=== PATIENT | female | born 1975 | race African-American/Black ===

== ENCOUNTER 2019-10-07 14:43 | Emergency (ER) | payer SELFPAY ==
--- NOTE | 2019-10-07 15:44 | CT ---
CT BRAIN WITHOUT CONTRAST: HISTORY: Syncope, collapse, trauma to the head, headache, neck pain COMPARISON: 05/18/2009 FINDINGS: No evidence of acute infarct, hemorrhage, midline shift or abnormal extra-axial fluid collections is seen. The ventricular size is appropriate and the basilar cisterns are patent. The bony calvarium is intact. The visualized paranasal sinuses and mastoid air cells are well aerated. IMPRESSION: No CT evidence of acute intracranial process.
--- NOTE | 2019-10-07 15:48 | CT ---
CT cervical spine noncontrast HISTORY: Neck injury. FINDINGS: Straightening of the normal lordotic curvature. Vertebral body heights are maintained. Cerv icothoracic junction is intact. No acute fracture or dislocation evident. Tiny pockets of gas just lateral to the C1 lateral mass and at the left C2 neural foramen are likely venous related to recent IV start. IMPRESSION: No acute osseous abnormalities are demonstrated.
[2019-10-07 16:16] LABS: #Lymphocytes 1.1 thou/uL (1.20-3.40); #Monocytes 0.7 thou/uL (0.11-0.59); #Neutrophils 5.3 thou/uL (1.40-6.50); %Basophils 0.4 % (0.0-1.0); %Eosinophils 0.1 % (0.0-10.0); %Lymphocytes 15.6 % (21.0-51.0); %Monocytes 10.1 % (0.0-10.0); %Neutrophils 73.9 % (42.0-75.0); Hemoglobin 14.7 g/dL (12.0-16.0); Mean Corpuscular Hemoglobin 30.2 pg (27.0-31.0); Mean Corpuscular Volume 91.6 fL (78.0-98.0); Mean Platelet Volume 6.5 fL (7.4-10.4); Platelet Count 310 thou/uL (130-400); Red Blood Cell (RBC) Count 4.85 mill/uL (4.20-5.40); White Blood Cell (WBC) Count 7.2 thou/uL (4.8-10.8)
[2019-10-07 16:38] LABS: ALT (SGPT) 12 U/L (8-55); AST (SGOT) 15 U/L (5-34); Albumin 3.9 g/dL (3.5-5.0); Alkaline Phosphatase 58 U/L (40-110); Anion Gap 12 mmol/L (10-20); BUN (Urea Nitrogen) 14 mg/dL (7.0-18.7); Bilirubin, Total 0.3 mg/dL (0.2-1.2); Calc. Creatinine Clearance 0 mL/min (70-130); Calcium 8.9 mg/dL (7.8-10.44); Carbon Dioxide 26 mmol/L (22-29); Chloride 103 mmol/L (98-107); Estimated GFR-MDRD 58; Globulin 3.7 g/dL (2.4-3.5); Glucose 85 mg/dL (70-105); Potassium 4.1 mmol/L (3.5-5.1); Protein, Total 7.6 g/dL (6.0-8.3); Sodium 137 mmol/L (136-145)
[2019-10-07 17:17] LABS: BHCG - Serum Negative (NEGATIVE); Pregs Control Background? CLEAR/WHITE (CLR/WHITE); Pregs Control Bar Appear? YES (CONTROL BAR)
== END 2019-10-07 17:10 | disposition home or self-care (01) ==
LOC: ERS 14:43
DX: R55 Syncope and collapse (principal); S09.90XA Unspecified injury of head, initial encounter; F17.210 Nicotine dependence, cigarettes, uncomplicated; W01.198A Fall on same level from slipping, tripping and stumbling with subsequent striking against other object, initial encounter
CPT/HCPCS: 36415; 70450; 72125; 80053; 84484; 84703; 85025; 93005; 96360

== ENCOUNTER 2020-12-27 10:30 | Emergency (ER) | payer SELFPAY ==
[2020-12-27 11:41] LABS: #Basophils 0.1 thou/uL (0.0-0.2); #Eosinphils 0.2 thou/uL (0.0-0.7); #Lymphocytes 1.3 thou/uL (1.20-3.40); %Basophils 1.2 % (0.0-1.0); %Eosinophils 1.9 % (0.0-10.0); %Lymphocytes 15.1 % (21.0-51.0); %Monocytes 11.6 % (0.0-10.0); %Neutrophils 70.2 % (42.0-75.0); Hemoglobin 12.8 g/dL (12.0-16.0); Mean Corpuscular HGB CONC 32.7 g/dL (32.0-36.0); Mean Corpuscular Hemoglobin 29.8 pg (27.0-31.0); Mean Platelet Volume 7.3 fL (7.4-10.4); Platelet Count 224 thou/uL (130-400); RBC Distribution Width 13.1 % (11.5-14.5); Red Blood Cell (RBC) Count 4.28 mill/uL (4.20-5.40); White Blood Cell (WBC) Count 8.5 thou/uL (4.8-10.8)
[2020-12-27] MEDS ORDERED: Iopamidol-370 76% 500 ML 1 ML ONE (11:44)
[2020-12-27 12:09] LABS: ALT (SGPT) 315 U/L (8-55); AST (SGOT) 296 U/L (5-34); Albumin 3.5 g/dL (3.5-5.0); Alkaline Phosphatase 51 U/L (40-110); Anion Gap 14 mmol/L (10-20); BUN (Urea Nitrogen) 12 mg/dL (7.0-18.7); Bilirubin, Total 2.1 mg/dL (0.2-1.2); Calc. Creatinine Clearance 0 mL/min (70-130); Calcium 8.5 mg/dL (7.8-10.44); Carbon Dioxide 18 mmol/L (22-29); Chloride 109 mmol/L (98-107); Globulin 3.1 g/dL (2.4-3.5); Glucose 120 mg/dL (70-105); Protein, Total 6.6 g/dL (6.0-8.3); Sodium 137 mmol/L (136-145)
[2020-12-27] MEDS ORDERED: Ondansetron PF 4 MG/2 ML Vial ONE (13:12)
[2020-12-27] MEDS ORDERED: Ketorolac Tromethamine 30 MG/ML VIAL ONE (13:12)
[2020-12-27] MEDS ORDERED: Albuterol Sulfate 1.25 MG/3 ML NEB ONE (13:12)
[2020-12-27] MEDS ORDERED: Albuterol Sulfate 2.5 mg/0.5 ml Neb ONE (13:13)
[2020-12-27] MEDS ORDERED: Albuterol 200 PUFF (6.7GM INHALER) ONE (13:15)
[2020-12-27 13:57] LABS: Bilirubin Negative (Negative); Blood, Urine Negative (Negative); Clarity Clear (Clear); Glucose, Urine (Dipstick) Normal (Negative); Ketone, Urine Negative (Negative); Leukocyte Negative Leu/uL (Negative); Nitrite Negative (Negative); Protein, Urine (Dipstick) Negative (Neg-Trace); Specific Gravity, Urine 1.019 (1.002-1.036); Urobilinogen Normal mg/dL (Less than 2)
[2020-12-27 15:38] LABS: SARS-CoV-2 NAA Rapid Test Not Detected (NotDetected)
[2020-12-27 16:19] LABS: Pregnancy Test - Urine (BHCG) Negative (Negative); Pregu Control Background? CLEAR/WHITE (CLR/WHITE); Pregu Control Bar Appear? YES (CONTROL BAR); Specific Gravity 1.019 (1.002-1.036)
[2020-12-27] MEDS ORDERED: cefTRIAXone\\ROCEPHIN 2 GM VIAL ONE (17:49)
[2020-12-27] MEDS ORDERED: Sodium Chloride 0.9% 100 ML ONE (17:49)
== END 2020-12-27 18:11 | disposition home or self-care (01) ==
LOC: ERS 10:30
DX: J18.9 Pneumonia, unspecified organism (principal); I10 Essential (primary) hypertension; F17.210 Nicotine dependence, cigarettes, uncomplicated
CPT/HCPCS: 0240U; 36415; 71045; 71275; 76705; 80053; 81003; 81025; 83605; 83690; 84484; 85025; 85379; 93005; 94760; 96365; 96375; J0696; J1885; J2405; J3490; J7611; Q9967

== ENCOUNTER 2021-01-30 19:39 | Inpatient (IN) | payer SELFPAY ==
[~2021-01-30 19:39] MED LIST: Iopamidol-370 76% 500 ML 1 ML ONE
[2021-01-30 20:57] LABS: #Basophils 0.1 thou/uL (0.0-0.2); #Eosinphils 0.3 thou/uL (0.0-0.7); #Lymphocytes 1.9 thou/uL (1.20-3.40); #Monocytes 0.5 thou/uL (0.11-0.59); #Neutrophils 4.8 thou/uL (1.40-6.50); %Basophils 1.4 % (0.0-1.0); %Eosinophils 4.5 % (0.0-10.0); %Lymphocytes 25.2 % (21.0-51.0); %Monocytes 6.4 % (0.0-10.0); %Neutrophils 62.5 % (42.0-75.0); Hemoglobin 13.3 g/dL (12.0-16.0); Mean Corpuscular HGB CONC 33.8 g/dL (32.0-36.0); Mean Corpuscular Hemoglobin 31.6 pg (27.0-31.0); Mean Corpuscular Volume 93.4 fL (78.0-98.0); Mean Platelet Volume 7.6 fL (7.4-10.4); Platelet Count 234 thou/uL (130-400); RBC Distribution Width 14.2 % (11.5-14.5); White Blood Cell (WBC) Count 7.6 thou/uL (4.8-10.8)
[2021-01-30 21:21] LABS: ALT (SGPT) 92 U/L (8-55); AST (SGOT) 45 U/L (5-34); Albumin 3.6 g/dL (3.5-5.0); Alkaline Phosphatase 67 U/L (40-110); Anion Gap 15 mmol/L (10-20); BUN (Urea Nitrogen) 16 mg/dL (7.0-18.7); Bilirubin, Total 1.1 mg/dL (0.2-1.2); CK (CPK) 151 U/L (29-168); Calc. Creatinine Clearance 0 mL/min (70-130); Calcium 8.4 mg/dL (7.8-10.44); Carbon Dioxide 21 mmol/L (22-29); Chloride 108 mmol/L (98-107); Globulin 2.6 g/dL (2.4-3.5); Glucose 112 mg/dL (70-105); Lipase 42 U/L (8-78); Potassium 4.5 mmol/L (3.5-5.1); Protein, Total 6.2 g/dL (6.0-8.3); Sodium 139 mmol/L (136-145)
[2021-01-30] MEDS ORDERED: Enoxaparin Sodium 80 MG/0.8 ML SYRINGE ONE (21:43)
[2021-01-30] MEDS ORDERED: Aspirin Chewable 81 MG TAB ONE (21:43)
[2021-01-30] MEDS ORDERED: Meclizine HCl 25 MG TAB ONE (21:49)
[2021-01-30 21:52] LABS: CKMB 3.4 ng/mL (0-6.6)
[2021-01-30 23:01] LABS: Acetaminophen Less than 6.0 mcg/mL (10.0-30.0); Alcohol Less than 10 mg/dL (Less than 10); Salicylate Less than 8.0 mg/dL (15.0-30.0)
[2021-01-30] MEDS ORDERED: Ondansetron ODT 4 MG TAB SL PRN (23:30)
[2021-01-30] MEDS ORDERED: Sodium Chloride 0.9% 1,000 ML IV SCH (23:30)
[2021-01-30] MEDS ORDERED: Ondansetron PF 4 MG/2 ML Vial IVP PRN (23:30)
[2021-01-31 00:01] VITALS: BMI 31.5
[2021-01-31] MEDS ORDERED: Ondansetron PF 4 MG/2 ML Vial IVP PRN (00:35)
[2021-01-31] MEDS ORDERED: Acetaminophen 325 MG TAB PO PRN (00:35)
[2021-01-31 01:29] LABS: SARS-CoV-2 NAA Rapid Test Not Detected (NotDetected)
[2021-01-31 03:15] LABS: #Basophils 0.1 thou/uL (0.0-0.2); #Eosinphils 0.1 thou/uL (0.0-0.7); #Lymphocytes 2.4 thou/uL (1.20-3.40); #Monocytes 0.5 thou/uL (0.11-0.59); #Neutrophils 5.1 thou/uL (1.40-6.50); %Basophils 1.4 % (0.0-1.0); %Eosinophils 1.3 % (0.0-10.0); %Lymphocytes 28.9 % (21.0-51.0); %Monocytes 6.2 % (0.0-10.0); %Neutrophils 62.2 % (42.0-75.0); Hemoglobin 12.8 g/dL (12.0-16.0); Mean Corpuscular HGB CONC 33.3 g/dL (32.0-36.0); Mean Corpuscular Hemoglobin 31.2 pg (27.0-31.0); Mean Corpuscular Volume 93.6 fL (78.0-98.0); Mean Platelet Volume 7.5 fL (7.4-10.4); Platelet Count 247 thou/uL (130-400); RBC Distribution Width 14.1 % (11.5-14.5); Red Blood Cell (RBC) Count 4.09 mill/uL (4.20-5.40); White Blood Cell (WBC) Count 8.2 thou/uL (4.8-10.8)
[2021-01-31 03:50] LABS: Troponin I 1.551 ng/mL (< 0.028)
[2021-01-31 04:07] LABS: Albumin 3.2 g/dL (3.5-5.0)
[2021-01-31 04:09] LABS: Chloride 110 mmol/L (98-107); Potassium 4.2 mmol/L (3.5-5.1); Sodium 135 mmol/L (136-145)
[2021-01-31 04:10] LABS: Glucose 97 mg/dL (70-105); Protein, Total 5.6 g/dL (6.0-8.3)
[2021-01-31 04:11] LABS: Anion Gap 11 mmol/L (10-20); Bilirubin, Total 1.3 mg/dL (0.2-1.2); Carbon Dioxide 18 mmol/L (22-29)
[2021-01-31 04:12] LABS: Alkaline Phosphatase 58 U/L (40-110)
[2021-01-31 04:13] LABS: Calc. Creatinine Clearance 134 mL/min (70-130)
[2021-01-31 04:14] LABS: BUN (Urea Nitrogen) 13 mg/dL (7.0-18.7)
[2021-01-31 04:15] LABS: ALT (SGPT) 84 U/L (8-55); AST (SGOT) 41 U/L (5-34); Bilirubin, Direct 0.6 mg/dL (0.1-0.3)
[2021-01-31] MEDS: Furosemide 20 MG/2 ML VIAL SLOW IVP SCH ×2 (05:16→18:29)
[2021-01-31 06:02] LABS: Amphetamine Not Detected (NotDetected); Barbiturates Screen Not Detected (NotDetected); Benzodiazepine Screen Not Detected (NotDetected); Cocaine Metabolite Screen Not Detected (NotDetected); Medtox Control Line Valid? VALID (VALID); Medtox Reader # READER 1; Methadone Not Detected (NotDetected); Methamphetamine Not Detected (NotDetected); Opiate Screen Not Detected (NotDetected); Oxycodone Screen Not Detected (NotDetected); Phencyclidine (PCP) Not Detected (NotDetected); THC/Cannabinoid Screen Detected (NotDetected); Tricyclic Screen Not Detected (NotDetected)
[2021-01-31] MEDS ORDERED: Magnesium 2 GM/50 ML 2 GM in Premix Bag 1 BAG IVPB SCH (06:30)
[2021-01-31] MEDS ORDERED: Aspirin 325 MG TAB PO SCH (09:00)
[2021-01-31] MEDS ORDERED: Iopamidol 370 76% 100 ML VIAL ONE (09:00)
[2021-01-31] MEDS ORDERED: Communication Order-Pharmacy FS SCH (11:15)
[2021-01-31] MEDS ORDERED: Nitroglycerin 100MG/250ML BOT 250 ML ONE (12:35)
[2021-01-31] MEDS ORDERED: Verapamil 5 MG/2 ML VIAL ONE (12:35)
[2021-01-31] MEDS ORDERED: Heparin 10,000 UNITS/ 10 ML VIAL ONE (12:35)
[2021-01-31] MEDS ORDERED: Lidocaine 1% (PF) 30 ML VIAL ONE (12:35)
[2021-01-31] MEDS ORDERED: Midazolam HCl 2 mg/2 ml Vial ONE (13:27)
[2021-01-31] MEDS ORDERED: Fentanyl 100 MCG/2 ML VIAL ONE (13:27)
[2021-01-31] MEDS ORDERED: Sodium Chloride 0.9% 200 ML IV PRN (13:47)
[2021-01-31] MEDS ORDERED: Acetaminophen/Codeine 30-300mg Tablet PO PRN ×2 (13:47)
[2021-01-31] MEDS ORDERED: Nitroglycerin 0.4 MG TAB (25 Tab Bottle) SL PRN (13:47)
[2021-01-31] MEDS ORDERED: Sodium Chloride 0.9% 1,000 ML IV SCH (14:00)
[2021-01-31] MEDS: Sodium Chloride 0.9% 1,000 ML IV SCH (14:20)
[2021-01-31] MEDS ORDERED: Sodium Chloride 0.9% 10 ML ONE (20:58)
[2021-02-01 04:52] LABS: #Basophils 0.1 thou/uL (0.0-0.2); #Eosinphils 0.5 thou/uL (0.0-0.7); #Lymphocytes 2.1 thou/uL (1.20-3.40); #Monocytes 0.5 thou/uL (0.11-0.59); #Neutrophils 4.1 thou/uL (1.40-6.50); %Basophils 1.1 % (0.0-1.0); %Eosinophils 6.8 % (0.0-10.0); %Lymphocytes 29.4 % (21.0-51.0); %Monocytes 6.6 % (0.0-10.0); %Neutrophils 56.1 % (42.0-75.0); Hemoglobin 12.9 g/dL (12.0-16.0); Mean Corpuscular HGB CONC 32.9 g/dL (32.0-36.0); Mean Corpuscular Hemoglobin 30.5 pg (27.0-31.0); Mean Corpuscular Volume 92.8 fL (78.0-98.0); Mean Platelet Volume 7.5 fL (7.4-10.4); Platelet Count 257 thou/uL (130-400); RBC Distribution Width 14.2 % (11.5-14.5); Red Blood Cell (RBC) Count 4.22 mill/uL (4.20-5.40); White Blood Cell (WBC) Count 7.2 thou/uL (4.8-10.8)
[2021-02-01 05:12] LABS: Anion Gap 13 mmol/L (10-20); BUN (Urea Nitrogen) 15 mg/dL (7.0-18.7); Calc. Creatinine Clearance 119 mL/min (70-130); Calcium 8.3 mg/dL (7.8-10.44); Carbon Dioxide 20 mmol/L (22-29); Chloride 108 mmol/L (98-107); Glucose 110 mg/dL (70-105); Potassium 4.7 mmol/L (3.5-5.1); Sodium 136 mmol/L (136-145)
[2021-02-01 05:16] LABS: ALT (SGPT) 78 U/L (8-55); AST (SGOT) 37 U/L (5-34); Albumin 3.3 g/dL (3.5-5.0); Alkaline Phosphatase 60 U/L (40-110); Bilirubin, Direct 0.5 mg/dL (0.1-0.3); Protein, Total 5.9 g/dL (6.0-8.3)
[2021-02-01] MEDS ORDERED: Sodium Chloride 0.9% 10 ML ONE (05:41)
[2021-02-01] MEDS: Furosemide 20 MG/2 ML VIAL SLOW IVP SCH ×2 (06:13→17:31)
[2021-02-01] MEDS: Sodium Chloride 0.9% 1,000 ML IV SCH (07:57)
[2021-02-01] MEDS ORDERED: Carvedilol 3.125 MG TAB PO SCH (08:30)
[2021-02-01] MEDS: Carvedilol 3.125 MG TAB PO SCH (17:31)
[2021-02-02 05:16] LABS: Anion Gap 9 mmol/L (10-20); BUN (Urea Nitrogen) 15 mg/dL (7.0-18.7); Calc. Creatinine Clearance 122 mL/min (70-130); Calcium 8.5 mg/dL (7.8-10.44); Carbon Dioxide 27 mmol/L (22-29); Chloride 107 mmol/L (98-107); Glucose 97 mg/dL (70-105); Magnesium 1.9 mg/dL (1.6-2.6); Potassium 3.9 mmol/L (3.5-5.1); Sodium 139 mmol/L (136-145)
[2021-02-02] MEDS: Furosemide 20 MG/2 ML VIAL SLOW IVP SCH (06:01)
[2021-02-02] MEDS: Carvedilol 3.125 MG TAB PO SCH ×2 (09:00→17:02)
[2021-02-02] MEDS ORDERED: Lisinopril 2.5 MG TAB PO SCH (09:15)
[2021-02-03] MEDS: Furosemide 20 MG TAB PO SCH (08:31)
[2021-02-03] MEDS: Carvedilol 3.125 MG TAB PO SCH ×2 (08:31→16:40)
[2021-02-03] MEDS ORDERED: Lisinopril 2.5 MG TAB PO SCH (09:00)
[2021-02-03] MEDS: Lisinopril 2.5 MG TAB PO SCH (21:15)
[2021-02-04] MEDS: Furosemide 20 MG TAB PO SCH (09:16)
[2021-02-04] MEDS: Carvedilol 3.125 MG TAB PO SCH ×2 (09:16→18:29)
[2021-02-04] MEDS: Lisinopril 2.5 MG TAB PO SCH (20:53)
[2021-02-04] MEDS ORDERED: Atorvastatin Calcium 40 MG TAB PO SCH (21:00)
[2021-02-05 05:01] LABS: #Basophils 0.2 thou/uL (0.0-0.2); #Eosinphils 0.8 thou/uL (0.0-0.7); #Lymphocytes 3.1 thou/uL (1.20-3.40); #Monocytes 0.7 thou/uL (0.11-0.59); #Neutrophils 2.7 thou/uL (1.40-6.50); %Basophils 2.3 % (0.0-1.0); %Eosinophils 10.9 % (0.0-10.0); %Lymphocytes 41.6 % (21.0-51.0); %Monocytes 8.8 % (0.0-10.0); %Neutrophils 36.3 % (42.0-75.0); Mean Corpuscular HGB CONC 32.8 g/dL (32.0-36.0); Mean Corpuscular Volume 94.5 fL (78.0-98.0); Mean Platelet Volume 7.5 fL (7.4-10.4); Platelet Count 294 thou/uL (130-400); RBC Distribution Width 13.6 % (11.5-14.5); Red Blood Cell (RBC) Count 4.51 mill/uL (4.20-5.40); White Blood Cell (WBC) Count 7.4 thou/uL (4.8-10.8)
[2021-02-05 05:30] LABS: Anion Gap 11 mmol/L (10-20); BUN (Urea Nitrogen) 16 mg/dL (7.0-18.7); Calc. Creatinine Clearance 114 mL/min (70-130); Carbon Dioxide 23 mmol/L (22-29); Chloride 108 mmol/L (98-107); Cholesterol 134 mg/dl (< 200 Desired); Glucose 93 mg/dL (70-105); HDL Cholesterol 27 mg/dL (>60 Neg Risk); LDL Cholesterol, Calculated 88 mg/dL; Potassium 4.1 mmol/L (3.5-5.1); Sodium 138 mmol/L (136-145); Triglycerides 97 mg/dL (Less than 150)
[2021-02-05] MEDS: Carvedilol 3.125 MG TAB PO SCH ×2 (08:36→16:20)
[2021-02-05] MEDS: Furosemide 20 MG TAB PO SCH (08:37)
[2021-02-05 16:46] VITALS: BP 108/67; TEMP 98
== END 2021-02-05 18:15 | disposition home or self-care (01) | DRG 280 ==
LOC: ERS 19:39 → 2NO 22:06
PROVIDERS: ADMIT Hospitalist; ATTEND Internal Medicine
PROC: 4A023N7 Measurement of Cardiac Sampling and Pressure, Left Heart, Percutaneous Approach (ICD-10-PCS; principal; 2021-01-31)
PROC: B2111ZZ Fluoroscopy of Multiple Coronary Arteries using Low Osmolar Contrast (ICD-10-PCS; 2021-01-31)
DX: I11.0 Hypertensive heart disease with heart failure (principal); I21.A1 Myocardial infarction type 2; I50.21 Acute systolic (congestive) heart failure; R74.8 Abnormal levels of other serum enzymes; I42.0 Dilated cardiomyopathy; I25.10 Atherosclerotic heart disease of native coronary artery without angina pectoris; I08.1 Rheumatic disorders of both mitral and tricuspid valves; R74.01 Elevation of levels of liver transaminase levels; F14.10 Cocaine abuse, uncomplicated; F12.10 Cannabis abuse, uncomplicated; Z20.822 Contact with and (suspected) exposure to COVID-19; Z88.0 Allergy status to penicillin; Z87.891 Personal history of nicotine dependence; Z71.51 Drug abuse counseling and surveillance of drug abuser; Z72.89 Other problems related to lifestyle; Z71.6 Tobacco abuse counseling
CPT/HCPCS: 36415; 71045; 71275; 80048; 80053; 80061; 80076; 80306; 80307; 82550; 82553; 83690; 83735; 83880; 84484; 85025; 85379; 93005; 93306; 93458; 93798; 96372; 99152; J1644; J1650; J1940; J2001; J2250; J3010; J3475; Q9967; U0002; U0005

== ENCOUNTER 2021-10-15 12:23 | Outpatient (CLI) | payer MEDICAID | END 2021-10-15 12:24 | disposition home or self-care (01) | LOC: BICRAD 12:23 | PROVIDERS: ATTEND Family Medicine | DX: M25.551 Pain in right hip (principal); M16.11 Unilateral primary osteoarthritis, right hip ==

== ENCOUNTER 2023-10-17 08:51 | Outpatient (CLI) | payer MEDICARE, OTHER | END 2023-10-17 08:52 | disposition home or self-care (01) | LOC: BICMAMMO 08:51 | PROVIDERS: ATTEND Family Medicine | DX: Z12.31 Encounter for screening mammogram for malignant neoplasm of breast (principal); Z80.3 Family history of malignant neoplasm of breast | CPT/HCPCS: 77063; 77067 ==